=== PATIENT | female | born 1955 | race Caucasian/White ===

== ENCOUNTER → 2016-12-14 | Day surgery (SDC) | payer MEDICAID ==
[~2016-12-14] VITALS: Ht 157.5 cm; Wt 57.7 kg
[~2016-12-14] MED LIST: CIPRO250 M1 PO; DELTASONE20 MG PO; DUONEB INH; KEYTRUDA50 MG; LEVAQUIN500 MG PO; NICODERM CQ1 EAC1 TRANS; OXYGEN M-15 INH; PROBIOTIC1 EAC1 PO; TYLENOL325 MG PO
--- NOTE | ~2016-12-14 | OR ---
PATIENT'S NAME: BRENDA PAREDES [facility] AGE: 61 Y [address] ROOM: [place] [id number] LOCATION: GEND ADMIT DATE: 12/14/2016 OR/Procedure Report DISCHARGE DATE: FAMILY PHYSICIAN: LAURA GALARZA MD ATTENDING PHYSICIAN: AZAR GRAMAJO SURGEON: Azar Gramajo MD DATE OF PROCEDURE: 12/14/2016 PROCEDURE TELEPHONE SERVICE ADVISER: Nivia Patel, anesthesia technician. PROCEDURES PERFORMED: 1. Bronchoscopy with endobronchial ultrasound and fine-needle aspiration of the paratracheal node. 2. Bronchoscopy with transbronchial biopsies of right upper lobe. INDICATIONS AND PRE-PROCEDURE DIAGNOSES: 1. Right lung adenocarcinoma. 2. Mediastinal adenopathy. 3. Right-sided pleural effusion. 4. Tobacco abuse. 5. Chronic respiratory failure. 6. Need for additional material for immunohistochemistry and genetic studies to better identify the type of adenocarcinoma and to help guide the type of targeted therapy which the patient will need. POST-PROCEDURE DIAGNOSES: 1. Right lung adenocarcinoma. 2. Malignant mediastinal adenopathy. 3. Right-sided pleural effusion. 4. Tobacco abuse. 5. Chronic respiratory failure. 6. Need for additional material for immunohistochemistry and genetic studies to better identify the type of adenocarcinoma and to help guide the type of targeted therapy which the patient will need. CONSENT: Consent was obtained from the patient after all the indications, risks, and benefits were explained at length. The patient verbalized understanding and signed an informed consent. DESCRIPTION OF PROCEDURE: The patient was taken to the endoscopy suite where she was intubated with a #9 endotracheal tube by the Anesthesia services. General anesthesia was started. The bronchoscope was advanced through the endotracheal tube and the airways were examined. PATIENT'S NAME: BRENDA PAREDES [facility] AGE: 61 Y [address] ROOM: [place], [place] [address] [facility] ADMIT DATE: 12/14/2016 OR/Procedure Report DISCHARGE DATE: FAMILY PHYSICIAN: LAURA GALARZA MD ATTENDING PHYSICIAN: AZAR GRAMAJO FINDINGS: I initially started with a regular diagnostic bronchoscopy. There was a small amount of bloody frothy secretions in the distal trachea and at the takeoff of the right upper lobe bronchus. These secretions were suctioned easily. There is no evidence of any endobronchial lesion seen in both bronchial trees. The regular diagnostic bronchoscope was withdrawn, and the bronchoscope with endobronchial ultrasound was advanced. The patient had evidence of a right paratracheal node of approximately 2 cm in size. Using the ultrasound, I started performing fine-needle aspirates of the right paratracheal node. The first pass was negative for malignant cells, while the second pass had few malignant cells. In total, I performed 6 passes. Because of the limited number of cells seen on the slides performed by the cytology agriculture technician who was present in the room, I decided to perform additional transbronchial biopsies from the right upper lobe that had evidence of diffuse adenocarcinoma as seen on a recent PET/CT. Under fluoroscopic guidance, I performed 3 additional transbronchial biopsies from the right upper lobe. There was minimal amount of bleeding that stopped by itself or after the instillation of small aliquots of cold saline. At the end of the procedure there was no active bleeding seen. The bronchoscope was withdrawn, and the patient was returned to the Anesthesia team for further management. COMPLICATIONS: None. ESTIMATED BLOOD LOSS: Approximately 10 mL. SPECIMENS: The bronchoalveolar lavage will be sent for cytology study, while the transbronchial biopsies will be sent for pathology studies. MD CALIN DINH/modl /[id number] d: 12/14/16 2325 t: 12/16/16 1020, OPERATIVE SUMMARY
== END | disposition disaster alternative care site (69) ==
LOC: GPOC 12-10 16:00 → GEND 11:23 → GPOC 16:00
PROC: 0BBC8ZX Excision of Right Upper Lung Lobe, Via Natural or Artificial Opening Endoscopic, Diagnostic (ICD-10-PCS; principal; 2016-12-14)
PROC: 07B74ZX Excision of Thorax Lymphatic, Percutaneous Endoscopic Approach, Diagnostic (ICD-10-PCS; 2016-12-14)
DX: C34.11 Malignant neoplasm of upper lobe, right bronchus or lung (principal); R59.0 Localized enlarged lymph nodes; J90 Pleural effusion, not elsewhere classified; J96.10 Chronic respiratory failure, unspecified whether with hypoxia or hypercapnia; F41.9 Anxiety disorder, unspecified; J44.9 Chronic obstructive pulmonary disease, unspecified; Z72.0 Tobacco use; Z91.041 Radiographic dye allergy status; Z88.2 Allergy status to sulfonamides; Z90.710 Acquired absence of both cervix and uterus; Z98.890 Other specified postprocedural states
CPT/HCPCS: J1100; J2001; J2405; J3010; J7030

== ENCOUNTER 2016-12-25 17:00 | Inpatient (IN) | payer MEDICAID ==
[~2016-12-25] VITALS: Ht 157.5 cm; Wt 61.5 kg
--- NOTE | ~2016-12-25 | CON ---
PATIENT'S NAME: BRENDA PAREDES [facility] AGE: 61 Y [address] ROOM: [place] [address] LOCATION: GPCU ADMIT DATE: 12/25/2016 Consultation DISCHARGE DATE: FAMILY PHYSICIAN: LAURA GALARZA MD ATTENDING PHYSICIAN: SOHA ROBINS DATE OF CONSULTATION: 12/25/2016 REFERRING PHYSICIAN: Pattie Wright MD PULMONARY CRITICAL CARE CONSULTATION HISTORY OF PRESENTING ILLNESS: This is a very pleasant, 61-year-old, female, with a history of right-sided adenocarcinoma stage IV, received chemotherapy with Keytruda 200 mg IV given on 12/16/2016. The patient has been complaining of worsening shortness of breath ever since, at baseline the patient has a cough, sometimes productive, sometimes it is dry, but she stated that she has not worsened, but her main complaint is worsening shortness of breath especially with exertion, the patient denied any pleurisy or hemoptysis. Apparently the patient was admitted to [facility] for worsening shortness of breath. A CT scan of the chest was done and it shows increased ground-glass opacities. For her lung cancer, she also has a right PleurX catheter to drain the recurrent right-sided pleural effusion which was determined to be malignant. The patient again was in [facility], was transferred to [facility] for higher level of care. There was this talk about honeycombing appearance that is appearing on the CT of the chest, but by comparing the two CT of the chest, there is no significant change in that area. The patient has been having worsening shortness of breath ever since 12/16/2016. REVIEW OF SYSTEMS: A 10-point review of systems was done and otherwise negative other than mentioned in the history of presenting illness. ALLERGIES: 1. THE IODINE CONTRAST WHICH CAUSES HIVES. 2. SULFA CAUSES HIVES AND SHORTNESS OF BREATH. PAST MEDICAL HISTORY: 1. Stage IV adenocarcinoma of the lung. 2. Chronic respiratory failure, on home oxygen. PATIENT'S NAME: BRENDA PAREDES [facility] AGE: 61 Y [address] ROOM: [place] [address] LOCATION: GPCU ADMIT DATE: 12/25/2016 Consultation DISCHARGE DATE: FAMILY PHYSICIAN: LAURA GALARZA MD ATTENDING PHYSICIAN: SOHA ROBINS SOCIAL HISTORY: The patient was a former cigarette smoker. She quit just one week ago. She used to smoke about 1-1/2 pack per day for the past 44 years. She denies any alcohol or any illegal drug use. SURGICAL HISTORY: 1. Status post hysterectomy. 2. PleurX catheter insertion. 3. Mediastinoscopy in November of 2016. FAMILY HISTORY: Both parents from stroke at old age. PHYSICAL EXAMINATION: GENERAL: The patient is sitting in bed, comfortable, does not appear in acute distress. VITAL SIGNS: Temperature is 98.0, saturation is 93 on 4 L nasal cannula, respirations are 16, heart rate is 76, and blood pressure is 130/87. HEENT: Eyes are nonicteric. Pupils are equal, reactive to light and accommodation. NECK: Supple. No lymphadenopathy. No jugular venous distention. HEART: S1, S2. No murmurs, rubs, or gallops. ABDOMEN: Soft, nontender, and no palpable organs. EXTREMITIES: Lower extremities; no edema, clubbing, or cyanosis. LABORATORY DATA: The labs are currently pending. CT imaging was reviewed by me which revealed that there is a ground-glass opacity and nodular infiltrates in the left lung and the right lower lung, the honeycombing appearance has not changed compared to 11/29/2016. IMPRESSION AND PLAN: 1. Acute on chronic hypoxic respiratory failure. This is most likely secondary to possibility of infection, pneumonitis status post by Keytruda, although these areas are not very clear to me and this could be secondary to reaction to the Keytruda, I am not quite sure if there is any increased or decreased advancement of the cancer, there is a nodular density that is there on the left side that was not there on 11/29/2016. This could represent a fungal infection, viral, bacterial, although this could represent the beginning of an acute pneumonitis that is not apparent on the CT of the chest at the current point. 2. Chronic obstructive pulmonary disease. 3. Stage IV adenocarcinoma of the lung. PATIENT'S NAME: BRENDA PAREDES [facility] AGE: 61 Y [address] ROOM: [place] [address] LOCATION: GPCU ADMIT DATE: 12/25/2016 Consultation DISCHARGE DATE: FAMILY PHYSICIAN: LAURA GALARZA MD ATTENDING PHYSICIAN: SOHA ROBINS RECOMMENDATIONS: At the current point: 1. I do agree with the current antibiotic choices. 2. We will continue the patient on steroids. 3. I would recommend fiberoptic bronchoscopy with transbronchial biopsy and bronchoalveolar lavage in the morning. 4. We will tailor on antibiotics and steroids according to the findings that we find. 5. The risks and benefits of the bronchoscopy were discussed with the patient including the risks of bleeding, infection, and pneumothorax. She agrees to proceed with the procedure. Thank you for allowing me to participate in care of this patient. MD JOHNY EVANS/leilani /[id number] d: 12/27/160 t: 02/01/17 0909, CONSULTATION REPORT
--- NOTE | ~2016-12-25 | DS ---
PATIENT'S NAME: BRENDA PAREDES [facility] AGE: 61 Y [address] ROOM: [address] [address] LOCATION: GPCU ADMIT DATE: 12/25/2016 Discharge Summary DISCHARGE DATE: 12/29/2016 FAMILY PHYSICIAN: Rasheeda Haley MD ATTENDING PHYSICIAN: Matthew Yi PRINCIPAL DIAGNOSES: 1. Alaka-iv-jhjkojo hypoxic respiratory failure. 2. Healthcare-acquired pneumonia. 3. Adenocarcinoma of the lungs. 4. Chronic obstructive pulmonary disease exacerbation. BRIEF HOSPITAL COURSE: Please refer to the admitting history and physical for detailed history of initial presentation. This is a 61-year-old female with known history of grade IV adenocarcinoma of the lungs who presented initially with complaints of worsening shortness of breath. The patient upon admission was taken to and had a bronchoscopy done with lavage and . The patient was subsequently admitted and continued on broad-spectrum antibiotics for possible pneumonia. The patient was also treated with steroids and continued to show improvement. Culture results to date did not show any definitive signs of infection. In any case, the patient is to continue her steroid taper and continue her antibiotics regimen with Levaquin and follow up with her oncologist next week. The patient is back down to 3 liters of oxygen, ambulating well, and this is all baseline for her. The patient will also follow up with Pulmonary Clinic in 4 weeks as well. The patient today is being discharged in satisfactory condition. She will follow up with Oncology and Pulmonology. PHYSICAL EXAMINATION: VITAL SIGNS: Stable and afebrile. LUNGS: Breath sounds diminished but clear and no wheezing. HEART: S1, S2. Regular rate and rhythm. ABDOMEN: Soft, nontender, nondistended. EXTREMITIES: Without edema. DISPOSITION: Home. MEDICATIONS: Per MAR including prednisone taper at 40 mg p.o. daily for 20 days, and then 20 mg daily until pulmonology followup. Less than 30 minutes were spent on discharge planning and facilitating. PATIENT'S NAME: BRENDA PAREDES [facility] AGE: 61 Y [address] ROOM: [address] [address] [facility] AD[facility] DATE: 12/25/2016 Discharge Summary DISCHARGE DATE: 12/29/2016 FAMILY PHYSICIAN: Rasheeda Haley MD ATTENDING PHYSICIAN: Matthew Yi MD BG/modl /[id number] d: 12/30/16626 t: 01/19/17 1521, DISCHARGE SUMMARY
--- NOTE | ~2016-12-25 | HP ---
PATIENT'S NAME: BRENDA PAREDES [facility] AGE: 61 Y [address] ROOM: [address] [place] [id number] LOCATION: GPCU ADMIT DATE: 12/25/2016 History & Physical DISCHARGE DATE: FAMILY PHYSICIAN: PHYSICIAN, UNKNOWN ATTENDING PHYSICIAN: SOHA ROBINS DATE OF SERVICE: CHIEF COMPLAINT: Worsening shortness of breath. HISTORY OF PRESENT ILLNESS: This is a 61-year-old female with history of right-side adenocarcinoma stage IV, who received chemotherapy with Keytruda 200 mg IV given on December 16, 2016, and the patient says that since then she has been having this worsening shortness of breath. At baseline, the patient has a daily cough, sometimes it is productive, sometimes it is dry, but she states that this has not worsened, but her main complaint is worsening shortness of breath, especially with exertion. For her lung cancer, she also has a right PleurX catheter to drain for the recurrent right-sided pleural effusion, which was determined to be malignant in the past. The patient was initially evaluated in [place]. She was admitted over there on December 23, 2016, where the patient was started on 4 antibiotics with vancomycin, Levaquin, Zosyn, and tazobactam. The patient also had a CT of the chest performed, and it showed honeycombing appearance of the right upper and middle lobe, which had shown significant worsening. The patient also had a small loculated pleural effusion anteriorly within the right chest. The patient also had a spiculated nodules in the left upper lobe and left lower lobe, which are unchanged. There were also numerous small noncalcified nodules, which were seen, progressed from the prior exam. The patient also had a hyperenhancing 14 mm lesion in the medial segment of the left lower lobe of the liver, which was unchanged. Given the finding of the skin rash in her legs, which started after starting Keytruda, there was a concern about autoimmune pneumonitis and also dermatitis. Therefore, the patient was also started on steroids. First dose was today on December 25, 2016. Given the patient's primary doll repairer is in our facility, the patient requested to be transferred here for further care. The patient says that she cannot really tell me if she is getting better or worse because she is lying on the bed, but she states she still gets short of breath with exertion. REVIEW OF SYSTEMS: As mentioned in the history of present illness. All other systems were reviewed and were negative except those mentioned in the history of present illness. PATIENT'S NAME: BRENDA PAREDES [facility] AGE: 61 Y [address] ROOM: [address] [address] LOCATION: GPCU ADMIT DATE: 12/25/2016 History & Physical DISCHARGE DATE: FAMILY PHYSICIAN: PHYSICIAN, UNKNOWN ATTENDING PHYSICIAN: SOHA ROBINS PAST MEDICAL HISTORY: 1. Right-side stage IV adenocarcinoma of the lung. 2. Chronic respiratory failure, on home oxygen 3 L nasal cannula 11/01, from COPD. ALLERGIES: IODINE CONTRAST, WHICH CAUSES HIVES; SULFA CAUSES HIVES AND SHORTNESS OF BREATH; AND PROBABLY ALSO WITH KEYTRUDA, THAT IS THE REASON WHY SHE IS HERE. SOCIAL HISTORY: The patient was a former cigarette smoker. She quit just 1 week ago. She used to smoke about 1-1/2 pack per day for the last 44 years. She denies any alcohol or any illegal drug use. PAST SURGICAL HISTORY: 1. Status post hysterectomy. 2. Status post right-side PleurX catheter placement. FAMILY HISTORY: Both parents from stroke at old age. PHYSICAL EXAMINATION: VITAL SIGNS: At the time of dictation, temperature 98, saturation was 93% on 4 L nasal cannula, respiration was 16, heart rate 76, blood pressure 130/87. GENERAL APPEARANCE: Alert and oriented x3, in no acute distress. HEENT: Pupils equally round and reactive to light. Extraocular muscles intact. Anicteric sclerae. Nasal turbinates are normal bilaterally. Moist oral mucosa. NECK: No JVD. CARDIOVASCULAR: Regular rate and rhythm. No murmur. No rubs. No gallops. Normal S1, S2. RESPIRATORY: Diffuse decreased breath sounds more on the right lung than the left lung with some crackles on the right lower lung. No wheezing, no rales, no rhonchi. ABDOMEN: Soft, nontender, nondistended, bowel sounds present, no mass. Nondistended. EXTREMITIES: No edema in upper or lower extremities. SKIN: She has a petechial type rash in her lower extremities and also in her back and also in her abdomen. NEUROLOGICAL: Grossly nonfocal. LABORATORY DATA: Currently, our labs are pending. IMAGING STUDY: PATIENT'S NAME: BRENDA PAREDES [facility] AGE: 61 Y [address] ROOM: [address] [place], [place] [address] [facility] AD[facility] DATE: 12/25/2016 History & Physical DISCHARGE DATE: FAMILY PHYSICIAN: PHYSICIAN, UNKNOWN ATTENDING PHYSICIAN: SOHA ROBINS Refer to the history of present illness for the report of the CT scan of the chest that was done at an outside facility. ASSESSMENT AND PLAN: 1. Regarding her acute on chronic hypoxemic respiratory failure: This is secondary to her lung cancer, and probably the worsening shortness of breath is from the chemotherapy medication, Keytruda. We are going to consult Oncology for further recommendation regarding her chemotherapy agent of choice. We will also get a Pulmonology consult. The plan will be to start her on the triple antibiotics with IV Levaquin and IV Zosyn and also IV vancomycin. Continue p.o. steroids 60 mg per day and oxygen to keep her saturation more than 90%, and tomorrow plan for bronchoscopy in the morning. N.p.o. after midnight. Further plan will depend on clinical course. We will also get 2 sets of blood culture as well. We will get a UA and also urine culture as well. 2. Regarding her chronic obstructive pulmonary disease: See number #1 for other details. Continue the home nebulization. Further plan will depend on clinical course. 3. Deep venous thrombosis prophylaxis. For now, I will avoid pharmacological agent given tomorrow she is going for bronchoscopy. Afterwards, she can use Lovenox. Time spent in care on the day of admission 45 minutes where 25 minutes were spent on counseling, including going over the plan of care and addressing all the questions and concerns that the patient had to her satisfaction. The remainder of time was spent on interview and physical examination and also on chart review. Further plan will depend on clinical course. MD MONIQUE SOLOMON/leilani /[id number] D: [id number] T: [id number] HISTORY & PHYSICAL
--- NOTE | ~2016-12-25 | OR ---
[facility] 61 Y [address] ROOM: [address] [address] LOCATION: GPCU ADMIT DATE: 12/25/2016 OR/Procedure Report DISCHARGE DATE: FAMILY PHYSICIAN: LAURA GALARZA MD ATTENDING PHYSICIAN: SOHA ROBINS SURGEON: Prashant Weinstein MD PROJECT COORDINATOR RN: DATE OF PROCEDURE: 12/26/2016 PROCEDURE: 1. Fiberoptic bronchoscopy. 2. Transbronchial biopsies under fluoroscopic guidance. 3. Transbronchial biopsy in additional lobe. 4. Bronchial alveolar lavage on multiple lobes. CONSENT: Risks and benefits of the procedure were discussed with the patient including risk of bleeding, infection, and pneumothorax. The patient agrees to proceed with the procedure. PROCEDURE IN DETAIL: After the informed consent, proper time-out was called by me and the nursing staff, the patient was put to general anesthesia using an LMA size 4. For the sedation, please refer to the Anesthesia record. After the appropriate level of anesthesia was achieved, the Olympus bronchoscope was passed through the LMA into the tracheobronchial tree, the patient tolerated the procedure well. There were no immediate complications. FINDINGS: The vocal cords were normal, moving with breathing. The trachea was normal in caliber. There was no endobronchial lesions or secretions. The nohelia was sharp, nonsplayed. The right mainstem was patent. The takeoff of the right upper lobe was 1.5 cm from the nohelia. The right upper lobe was almost completely occluded with tumor, compression, and there was a beginning of endobronchial lesion protrusion. The bronchus intermedius was patent. The right middle and lower lobe was patent with slight very thin clear to whitish secretions which was suctioned out. Then the bronchoscope was brought to the left mainstem. The left mainstem was patent. The left upper lobe and lingula were patent. No endobronchial lesions or secretions, anatomically correct. Then, the left lower lobe was patent with no endobronchial lesions or secretions. After the initial inspection was done, the bronchoscope was wedged into the lingula and anterior segment of bronchioloalveolar lavage was done in the anterior and posterior segments respectively. There were collected in one jar using 40 mL of normal saline. After that, the bronchoscope was wedged in the PATIENT'S NAME: BRENDA PAREDES [facility] AGE: 61 Y [address] ROOM: [address] [address] LOCATION: [facility] ADMIT DATE: 12/25/2016 OR/Procedure Report DISCHARGE DATE: FAMILY PHYSICIAN: LAURA GALARZA MD ATTENDING PHYSICIAN: SOHA ROBINS A left lower lobe and again 40 mL bronchoalveolar lavage was done. The fluid was collected into one jar and sent to the laboratory. After that, the bronchoscope was wedged into the lingula, anterior and posterior segments. Transbronchial biopsy under fluoroscopic guidance was done into the lingula x3, and in the left upper lobe, apical posterior segments x3, and on the left lower lobe x2. All these biopsies were done using biopsy jaw forceps under fluoroscopic guidance. The patient tolerated the procedure well. There were no immediate complications. Estimated blood loss from the procedure was 5 mL. CONCLUSION: 1. Fiberoptic bronchoscopy with transbronchial biopsy with additional lobe biopsy. 2. Bronchoalveolar lavage. 3. We will await the pathology and microbiology results. 4. We will continue the current steroid and antibiotics on the patient until further information is available. Thank you for allowing me to participate in the care of this patient. MD JOHNY EVANS/leilani /[id number] d: 12/27/16 1508 t: 02/01/17 0911, OPERATIVE SUMMARY
[~2016-12-25 17:00] MED LIST changes: -CIPRO250 M1 PO; -DELTASONE20 MG PO; -KEYTRUDA50 MG
[2016-12-25] MEDS ORDERED: KEYTRUDA50 MG (19:35)
[2016-12-25 21:17] LABS: BASOPHIL % 0.4 %; EOSINOPHIL % 0.3 %; HEMATOCRIT 26.7 % (33.0-46.0); HEMOGLOBIN 8.2 g/dL (10.0-15.0); IMMATURE GRANULOCYTE # 0.2 K/uL (0.0-0.3); IMMATURE GRANULOCYTE % 1.8 %; LYMPHOCYTE # 0.9 K/uL (0.8-4.0); MCH 27.2 pg (27.0-34.0); MCHC 30.7 gm/dL (32.0-36.5); MCV 88.4 fl (83.0-98.0); MONOCYTE # 0.1 K/uL (0.0-1.0); MPV 9.2 fl (9.4-12.4); NEUTROPHIL # (ANC) 8.9 K/uL (1.8-7.8); NEUTROPHIL % 87.5 %; NRBC % 0 /100WBC (0-0.00); RBC 3.02 M/uL (3.50-5.50); RDW-CV 14.6 % (11.9-14.6); WBC 10.2 K/uL (4.0-11.0)
[2016-12-25 21:32] LABS: ALK PHOS 61 IU/L (33-138); ALT 64 IU/L (12-78); ANION GAP 16.2 (10.0-19.0); AST 52 IU/L (10-40); BLOOD UREA NITROGEN 13 mg/dL (6-24); CHLORIDE 109 mMol/L (96-110); CO2 22 mMol/L (22-32); CREATININE 0.9 mg/dL (0.5-1.1); ESTIMATED GFR (MDRD EQUATION) > 60; PHOSPHORUS 2.8 mg/dL (2.5-4.9); POTASSIUM 4.2 mMol/L (3.7-5.1); SODIUM 143 mMol/L (135-145); TOTAL BILIRUBIN 0.2 mg/dL (0.0-1.5); TOTAL PROTEIN 5.4 g/dL (6.0-8.4)
[2016-12-25 21:33] LABS: ALBUMIN 1.7 gm/dL (3.5-5.0)
[2016-12-25 21:47] LABS: PLATELET COUNT 457 K/uL (150-450)
[2016-12-25 23:14] LABS: PROTIME 10.5 SECONDS (9.8-11.4); PTT 22 SECONDS (25-32)
--- NOTE | 2016-12-26 01:19 | NUR ---
Patient is a 61yo female transferred to [facility] from [facility] in [place] for hypoxic respiratory failure. Patient arrived on 4L NC with sats of 98%. Patient wears 3L at home. Vitals upon arrival: temp 98.3, 136/65-92, 88bpm, 14 respirations and no complaints of pain. Patient is A/Ox3. Patient does have a rash that covers her entire body except her arms. She reports that it occasionally itches. She has an IV to her R) antecubital that flushes with no blood return and one to her L) wrist that flushes with no blood return. Patient is up as a standby assist and tolerates fairly well, but does get short of breath with exertion. Patient has a history of lung cancer, is a former smoker. Has had a hysterectomy in the past and a bronchoscopy in October. Patient is being seen by both hospitalist and Dr. Weinstein. NPO at midnight for bronch with biopsy around 1100 tomorrow.
[2016-12-26 07:51] LABS: BASOPHIL % 0.2 %; EOSINOPHIL % 0.2 %; HEMATOCRIT 26.1 % (33.0-46.0); HEMOGLOBIN 8.2 g/dL (10.0-15.0); IMMATURE GRANULOCYTE # 0.2 K/uL (0.0-0.3); IMMATURE GRANULOCYTE % 1.9 %; LYMPHOCYTE # 1.4 K/uL (0.8-4.0); LYMPHOCYTE % 13.8 %; MCH 27.1 pg (27.0-34.0); MCHC 31.4 gm/dL (32.0-36.5); MCV 86.1 fl (83.0-98.0); MONOCYTE # 0.6 K/uL (0.0-1.0); MONOCYTE % 5.4 %; MPV 8.6 fl (9.4-12.4); NEUTROPHIL # (ANC) 8.1 K/uL (1.8-7.8); NEUTROPHIL % 78.5 %; NRBC % 0 /100WBC (0-0.00); RBC 3.03 M/uL (3.50-5.50); RDW-CV 14.6 % (11.9-14.6); WBC 10.3 K/uL (4.0-11.0)
[2016-12-26 08:01] LABS: PLATELET COUNT 551 K/uL (150-450)
[2016-12-26 08:05] LABS: ANION GAP 13.1 (10.0-19.0); BLOOD UREA NITROGEN 13 mg/dL (6-24); CALCIUM 8.3 mg/dL (8.5-10.5); CHLORIDE 111 mMol/L (96-110); CO2 23 mMol/L (22-32); CREATININE 0.8 mg/dL (0.5-1.1); ESTIMATED GFR (MDRD EQUATION) > 60; POTASSIUM 4.1 mMol/L (3.7-5.1); SODIUM 143 mMol/L (135-145)
--- NOTE | 2016-12-26 17:52 | NUR ---
PATIENT TO ENDO FOR BRONCH THIS AM. PATIENT WAS SHORT OF BREATH AND ON 8L SIMPLE MASK WHEN RETURNED TO PCU. TITRATED TO 4L NC BY THIS AFTERNOON. PATIENT STATED SHE FELT MUCH BETTER WITHIN A FEW HOURS, SHE STATED SHE FELT BACK TO HER BASELINE. CONTINUE IV ANTIBIOTICS. FAMILY AT BEDSIDE.
[2016-12-27 04:23] LABS: BASOPHIL % 0.1 %; EOSINOPHIL % 0.1 %; HEMATOCRIT 24.4 % (33.0-46.0); IMMATURE GRANULOCYTE # 0.2 K/uL (0.0-0.3); IMMATURE GRANULOCYTE % 1.9 %; LYMPHOCYTE # 1.2 K/uL (0.8-4.0); MCH 27.7 pg (27.0-34.0); MCHC 31.6 gm/dL (32.0-36.5); MCV 87.8 fl (83.0-98.0); MONOCYTE # 0.2 K/uL (0.0-1.0); MONOCYTE % 2.4 %; MPV 8.7 fl (9.4-12.4); NEUTROPHIL # (ANC) 7.7 K/uL (1.8-7.8); NEUTROPHIL % 82.5 %; NRBC % 0 /100WBC (0-0.00); PLATELET COUNT 509 K/uL (150-450); RBC 2.78 M/uL (3.50-5.50); RDW-CV 14.6 % (11.9-14.6); WBC 9.3 K/uL (4.0-11.0)
[2016-12-27 04:34] LABS: HEMOGLOBIN 7.7 g/dL (10.0-15.0)
[2016-12-27 04:46] LABS: ALK PHOS 49 IU/L (33-138); ALT 55 IU/L (12-78); ANION GAP 11.9 (10.0-19.0); AST 34 IU/L (10-40); BLOOD UREA NITROGEN 15 mg/dL (6-24); CHLORIDE 108 mMol/L (96-110); CO2 26 mMol/L (22-32); CREATININE 0.8 mg/dL (0.5-1.1); ESTIMATED GFR (MDRD EQUATION) > 60; MAGNESIUM 2.2 mg/dL (1.8-2.6); POTASSIUM 3.9 mMol/L (3.7-5.1); SODIUM 142 mMol/L (135-145); TOTAL PROTEIN 5.2 g/dL (6.0-8.4)
[2016-12-27 04:49] LABS: ALBUMIN 1.7 gm/dL (3.5-5.0); TOTAL BILIRUBIN 0.3 mg/dL (0.0-1.5)
--- NOTE | 2016-12-27 06:06 | NUR ---
Significant Event: Patient alert and oriented x3. Vital signs stable. On 2-4L O2 per NC. No complaints of pain this shift. Up with stand-by assist in room. Patient and daughter upset that Dr. Weinstein not able to show daughter results of scans. Offered to have Dr. Weinstein call this morning to talk to daughter. Refused. Patient upset with aide for coming into room to stalk during material handler 2nd shift. continues at bedside. Patient cooperative with cares. Follow up: Continue to monitor per plan of care.
--- NOTE | 2016-12-27 17:57 | NUR ---
PATIENT UP TO BR, AMBULATED IN [place] 2 LAPS THIS AFTERNOON. SATS WHILE AMBULATING MAINTAINED 90-92% ON 3L NC. D/C'D IV LEVAQUIN AND IV ZOSYN. STARTED PO LEVAQUIN. PULMONOLOGY ROUNDED THIS MORNING AND DISCUSSED PLAN WITH PATIENT AND FAMILY.
[2016-12-28 03:55] LABS: BASOPHIL % 0.2 %; EOSINOPHIL % 0.2 %; HEMATOCRIT 27.2 % (33.0-46.0); HEMOGLOBIN 8.3 g/dL (10.0-15.0); IMMATURE GRANULOCYTE # 0.4 K/uL (0.0-0.3); IMMATURE GRANULOCYTE % 3.5 %; LYMPHOCYTE % 17.9 %; MCH 26.6 pg (27.0-34.0); MCHC 30.5 gm/dL (32.0-36.5); MCV 87.2 fl (83.0-98.0); MONOCYTE # 0.7 K/uL (0.0-1.0); MONOCYTE % 6.5 %; MPV 8.5 fl (9.4-12.4); NEUTROPHIL # (ANC) 8.2 K/uL (1.8-7.8); NEUTROPHIL % 71.7 %; NRBC % 0 /100WBC (0-0.00); PLATELET COUNT 596 K/uL (150-450); RBC 3.12 M/uL (3.50-5.50); RDW-CV 14.9 % (11.9-14.6); WBC 11.4 K/uL (4.0-11.0)
[2016-12-28 04:02] LABS: ANION GAP 12.5 (10.0-19.0); BLOOD UREA NITROGEN 15 mg/dL (6-24); CALCIUM 7.7 mg/dL (8.5-10.5); CHLORIDE 110 mMol/L (96-110); CO2 24 mMol/L (22-32); CREATININE 0.7 mg/dL (0.5-1.1); ESTIMATED GFR (MDRD EQUATION) > 60; PHOSPHORUS 2.2 mg/dL (2.5-4.9); POTASSIUM 3.5 mMol/L (3.7-5.1); SODIUM 143 mMol/L (135-145)
[2016-12-28 04:04] LABS: ALBUMIN 1.8 gm/dL (3.5-5.0)
--- NOTE | 2016-12-28 04:13 | NUR ---
Significant Event: Patient alert and oriented x3. VSS. On 2-3L O2 per NC. No complaints of pain. IV Zyvox switched to PO after patient's IV infiltrated. Patient refused new IV. Patient refused probiotic despite RN education of benefits. Up with stand-by assist in room. continues at bedside. Patient cooperative with all cares. Follow up: Home today?
--- NOTE | 2016-12-28 13:00 | NUR ---
Introduced self and role of care management to patient and . They live in [place]. says she is self pay, but they have applied for medicaid. Did give them a financial assistance packet. Patient in on O2 at home. They hope she can go home tomorrow. Do not anticipate discharge needs at this time. Will follow.
--- NOTE | 2016-12-28 19:15 | NUR ---
Significant Event: Alert & oriented. VSS, afebrile, on 3L O2 per home dose, complains of SOB, especially with activity, maintains sats 92-97%. Rash improving per patient/. Irritable, wants to go home, does not like to be asked the same questions more than once. Edema to BLE but refuses to elevate. Refused Lovenox admin and refused to ambulate in the halls, encouraged to press call light if she would like to ambulate.
--- NOTE | 2016-12-29 04:56 | NUR ---
Significant Event: A/O x3. Afebrile. denies pain. vss on 3L. LS vary from clear/dim to coarse crackles throughout. Ambulated in [place] x1 with some SOB. recieved 2 breathing treatments. Irritable at times. Follow up: continue to monitor per plan of care.
[2016-12-29 05:32] LABS: BASOPHIL % 0.2 %; EOSINOPHIL % 0.2 %; HEMOGLOBIN 8.5 g/dL (10.0-15.0); IMMATURE GRANULOCYTE # 0.4 K/uL (0.0-0.3); IMMATURE GRANULOCYTE % 3.7 %; LYMPHOCYTE # 2.1 K/uL (0.8-4.0); LYMPHOCYTE % 19.4 %; MCH 27.3 pg (27.0-34.0); MCHC 31.5 gm/dL (32.0-36.5); MCV 86.8 fl (83.0-98.0); MONOCYTE # 0.8 K/uL (0.0-1.0); MONOCYTE % 7.6 %; MPV 8.3 fl (9.4-12.4); NEUTROPHIL # (ANC) 7.5 K/uL (1.8-7.8); NEUTROPHIL % 68.9 %; NRBC % 0.2 /100WBC (0-0.00); PLATELET COUNT 633 K/uL (150-450); RBC 3.11 M/uL (3.50-5.50); RDW-CV 15.1 % (11.9-14.6); WBC 10.8 K/uL (4.0-11.0)
[2016-12-29 05:45] LABS: ANION GAP 13.2 (10.0-19.0); BLOOD UREA NITROGEN 18 mg/dL (6-24); CALCIUM 7.7 mg/dL (8.5-10.5); CHLORIDE 109 mMol/L (96-110); CO2 23 mMol/L (22-32); CREATININE 0.7 mg/dL (0.5-1.1); ESTIMATED GFR (MDRD EQUATION) > 60; MAGNESIUM 2.2 mg/dL (1.8-2.6); PHOSPHORUS 2.5 mg/dL (2.5-4.9); POTASSIUM 3.2 mMol/L (3.7-5.1); SODIUM 142 mMol/L (135-145)
[2016-12-29 05:46] LABS: ALBUMIN 1.9 gm/dL (3.5-5.0)
--- NOTE | 2016-12-29 10:30 | NUR ---
Spoke with patient' outside patient's room. He says they didn't get good news this morning and she is anxious to go home. Told him about conversation with Gabriela with [employer]. He says he knows he is late sending information to medicaid, but he is working with someone from [facility]. Gave him Gabriela's card and to call if she can help at all. He is tearful and worried about telling their children the information they received this a.m. They plan home today once hospitalist rounds.
[2016-12-29] MEDS ORDERED: CIPRO250 M1 PO (12:03)
[2016-12-29] MEDS ORDERED: DELTASONE20 MG PO (12:05)
== END 2016-12-29 12:35 | disposition disaster alternative care site (69) | DRG 166 ==
LOC: GPCU 18:22
PROVIDERS: Internal Medicine; ADMIT Internal Medicine
DX: J96.21 Acute and chronic respiratory failure with hypoxia (principal); J15.9 Unspecified bacterial pneumonia; J91.0 Malignant pleural effusion; C34.12 Malignant neoplasm of upper lobe, left bronchus or lung; C34.11 Malignant neoplasm of upper lobe, right bronchus or lung; J44.0 Chronic obstructive pulmonary disease with (acute) lower respiratory infection; J44.1 Chronic obstructive pulmonary disease with (acute) exacerbation; C34.91 Malignant neoplasm of unspecified part of right bronchus or lung; Z87.891 Personal history of nicotine dependence; Y95 Nosocomial condition; L30.9 Dermatitis, unspecified; K76.9 Liver disease, unspecified; T45.1X5A Adverse effect of antineoplastic and immunosuppressive drugs, initial encounter; Z88.2 Allergy status to sulfonamides; Z91.041 Radiographic dye allergy status; Z66 Do not resuscitate
CPT/HCPCS: J1650; J1720; J1956; J2020; J2405; J2543; J7030; J7050; J7512